=== PATIENT | female | born 1995 | race Caucasian/White ===

== ENCOUNTER 2017-04-19 10:08 | Emergency (ER) | payer OTHER ==
[~2017-04-19] VITALS: Ht 172.7 cm; Wt 80.9 kg
[2017-04-19] MEDS ORDERED: SODIUM CHLORIDE FLUSH 10ML SYR IVF ONE (11:00)
[2017-04-19] MEDS ORDERED: KETOROLAC 30 MG/1 ML IVPush ONE (11:00)
[2017-04-19] MEDS ORDERED: KETOROLAC 30 MG/1 ML ONE (11:13)
[2017-04-19 11:24] VITALS: BP 107/53
[2017-04-19 11:36] LABS: HEMATOCRIT 41.1 % (34.6-47.8); HEMOGLOBIN 13.8 g/dL (11.7-16.4); WHITE BLOOD COUNT 7.4 x10^3/uL (4.5-13.2)
[2017-04-19 11:43] LABS: ASPARTATE AMINO TRANSFERASE 8 U/L (15-37); BLOOD UREA NITROGEN 8 mg/dL (7-18)
== END 2017-04-19 13:02 | disposition home or self-care (01) ==
LOC: ED 10:53
DX: R07.89 Other chest pain (principal)
CPT/HCPCS: 36415; 71010; 80053; 84439; 84443; 84703; 85025; 93005; 96374; 99285; J1885

== ENCOUNTER 2018-05-26 18:01 | Emergency (ER) | payer OTHER ==
[~2018-05-26] VITALS: Ht 172.7 cm; Wt 83.3 kg
[2018-05-26 18:06] VITALS: BP 138/88
== END 2018-05-26 18:49 | disposition home or self-care (01) ==
LOC: ED 18:19
DX: R22.0 Localized swelling, mass and lump, head (principal)
CPT/HCPCS: 99281

== ENCOUNTER 2020-12-30 11:30 | Emergency (ER) | payer OTHER ==
[~2020-12-30] VITALS: Ht 172.7 cm; Wt 84.9 kg
[2020-12-30 12:16] VITALS: BP 130/85
[2020-12-30] MEDS ORDERED: LIDOCAINE-MPF 1%, 5ML INFIL ONE (12:30)
--- NOTE | 2020-12-30 13:33 | NUR ---
HEALTH DATA ANALYST; CALLED FOR ROOM, NO ANSWER
--- NOTE | 2020-12-30 14:00 | NUR ---
PRODUCTION ASSEMBLY SUPERVISOR: CALLED FOR ROOM, NO ANSWER
--- NOTE | 2020-12-30 14:53 | NUR ---
HOME HEALTH AID: CALLED FOR ROOM, NO ANSWER
== END 2020-12-30 14:55 | disposition left against medical advice (07) ==
LOC: ED 14:46
DX: N89.8 Other specified noninflammatory disorders of vagina (principal); R11.0 Nausea
CPT/HCPCS: 99281